=== PATIENT | female | born 1995 | race Hispanic/Latino ===

== ENCOUNTER 2019-05-03 10:01 | Emergency (ER) | payer SELFPAY ==
[2019-05-03] MEDS ORDERED: ACETAMINOPHEN 500 MG TAB ONE (12:04)
[2019-05-03 12:33] LABS: Absolute Lymphocytes (CBC) 3.3 K/uL (0.7-4.9); Basophils % 0.5 % (0-1.3); Hematocrit 35.4 % (36.0-45.0); Lymphocytes % 32.1 % (15.3-44.8); MPV 8.5 fL (7.6-11.3); RBC Red Blood Cell Count 5.34 M/uL (3.86-4.86)
[2019-05-03 12:57] LABS: Blood Morphology Comment NOTED (NOT SEEN); Platelet Estimate ADEQ; Urine White Blood Cell Casts OK
[2019-05-03 13:01] LABS: ALT/SGPT 45 U/L (12-78); AST/SGOT 30 U/L (15-37); Albumin 3.7 g/dL (3.4-5.0); Alkaline Phosphatase 76 U/L (45-117); BUN Blood Urea Nitrogen 8 mg/dL (7-18); Bicarbonate 25 mmol/L (21-32); Bilirubin Direct < 0.1 mg/dL (0-0.2); Bilirubin Total 0.3 mg/dL (0.2-1.0); Glucose Level 146 mg/dL (74-106); Lipase 103 U/L (73-393); Potassium 3.6 mmol/L (3.5-5.1); Protein, Total 8.1 g/dL (6.4-8.2); Sodium Level 140 mmol/L (136-145)
[2019-05-03 13:16] LABS: Urine Blood NEGATIVE (NEG); Urine Glucose NEGATIVE (NEG); Urine Protein NEGATIVE (NEG); Urine Specific Gravity 1.025 (1.005-1.030); Urine pH 5.5 (5.0-7.0)
[2019-05-03] MEDS ORDERED: CEFTRIAXONE/SWI 1gm 1 GM/10 ML SYR ONE (13:25)
--- NOTE | 2019-05-03 14:01 | RAD REPORT ---
EXAM DESCRIPTION: US - Pelvis Complete - 05/03/2019 1:29 pm CLINICAL HISTORY: with abdominal pain COMPARISON: None FINDINGS: There is little urine within the bladder limiting evaluation of the uterus. The uterus measures 7 x 4 x 5 centimeters. Endometrial stripe measures 11 millimeters. A gestational sac is not visualized. 2 centimeter right ovarian cyst. Right and left ovary otherwise unremarkable. Right and left adnexa unremarkable. No significant free fluid IMPRESSION: Limited evaluation of the uterus and endometrium as the bladder is not well distended. A gestational sac is not visualized within the endometrium. If the [facility]aginal [facility] would be recommended.
--- NOTE | 2019-05-03 15:01 | EDPHYS ---
Physician Documentation [facility] Name: Tracy Catherine Age: 23 yrs Sex: Female : 1995 Arrival Date: 05/03/2019 Time: 10:04 Bed 26 Private MD: ED Physician Lilliam Jurado HPI: 05/03 13:37 This 23 yrs old Female presents to ER via Ambulatory with complaints of ma2 , Abdominal Pain. 13:37 Onset: The symptoms/episode began/occurred gradually, 2 day(s) ago. Associated signs ma2 and symptoms: Pertinent positives: suprapubic abd pain, Pertinent negatives: diarrhea, fever, urinary frequency, vaginal bleeding. Severity of symptoms: At their worst the symptoms were moderate, in the emergency department the symptoms are unchanged. The patient has not experienced similar symptoms in the past. 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 - Social history:: Smoking status: Patient/guardian denies using tobacco, Patient/guardian denies using alcohol, street drugs, The patient lives with family. - Ebola Screening: : Patient denies exposure to infectious person Patient denies travel to an Ebola-affected area in the 21 days before illness onset. - Family history:: not pertinent. ROS: 13:37 Negative for injury or acute deformity, hematuria, difficulty urinating, bladder ma2 incontinence, foul smelling urine, menstrual abnormality, missed period. 13:37 Constitutional: Negative for fever, chills, and weight loss, Eyes: Negative for injury, pain, redness, and discharge. 13:37 All other systems are negative. Exam: 13:37 Constitutional: This is a well developed, well nourished patient who is awake, alert, ma2 and in no acute distress. Neck: Trachea midline, no thyromegaly or masses palpated, and no cervical lymphadenopathy. Supple, full range of motion without nuchal rigidity, or vertebral point tenderness. No Meningismus. Chest/axilla: Normal chest wall appearance and motion. Nontender with no deformity. No lesions are appreciated. Cardiovascular: Regular rate and rhythm with a normal S1 and S2. No gallops, murmurs, or rubs. Normal PMI, no JVD. No pulse deficits. Respiratory: Lungs have equal breath sounds bilaterally, clear to auscultation and percussion. No rales, rhonchi or wheezes noted. No increased work of breathing, no retractions or nasal flaring. Abdomen/GI: Soft, non-tender, with normal bowel sounds. No distension or tympany. No guarding or rebound. No evidence of tenderness throughout. Back: No spinal tenderness. No costovertebral tenderness. Full range of motion. MS/ Extremity: Pulses equal, no cyanosis. Neurovascular intact. Full, normal range of motion. Neuro: Awake and alert, GCS 15, oriented to person, place, time, and situation. Cranial nerves II-XII grossly intact. Motor strength 5/5 in all extremities. Sensory grossly intact. Cerebellar exam normal. Normal gait. Vital Signs: 10:32 BP 132 / 83; Pulse 90; Resp 15; Temp 97.5(TE); Pulse Ox 99% on R/A; Weight 38.56 kg; ss Height 5 ft. 3 in. (160.02 cm); Pain 3/10; 10:34 Weight 124.74 kg; ss 11:47 BP 122 / 85; Pulse 86; Resp 17 S; Pulse Ox 100% on R/A; ca1 12:35 BP 122 / 89; Pulse 89; Resp 17 S; Pulse Ox 99% on R/A; ca1 13:32 BP 138 / 82; Pulse 85; Resp 16 S; Pulse Ox 99% on R/A; ca1 10:34 Body Mass Index 48.71 (124.74 kg, 160.02 cm) ss MDM: 11:06 Patient medically screened. ma2 13:37 Differential diagnosis: dysmenorrhea, nonspecific abdominal pain, urinary tract ma2 infection. 14:59 Data reviewed: vital signs, nurses notes. Counseling: I had a detailed discussion with ma2 the patient and/or guardian regarding: the historical points, exam findings, and any diagnostic results supporting the discharge/admit diagnosis, the presence of at least one elevated blood pressure reading (>120/80) during this emergency department visit, the need for outpatient follow up, repeat bhcg or US . Response to treatment: the patient's symptoms have markedly improved after treatment. 05/03 11:48 Order name: Urine Dipstick--Ancillary (enter results); Complete Time: 13:20 3 05/03 11:48 Order name: Urine --Ancillary (enter results); Complete [facility]: 13:20 [facility] 05/03 11:59 Order name: Abo/rh Typing; Complete Time: 13:11 [facility] 05/03 11:59 Order name: Basic Metabolic Panel; Complete Time: 13:11 ne2 05/03 11:59 Order name: CBC with Diff; Complete Time: 13:11 [facility] 05/03 11:59 Order name: Creatinine for Radiology; Complete Time: 13:11 [facility] 05/03 11:59 Order name: Hepatic Function; Complete Time: 13:11 [facility] 05/03 11:59 Order name: Lipase; Complete Time: 13:11 [facility] 05/03 12:57 Order name: CBC Smear Scan; Complete Time: 13:11 [facility] 05/03 13:08 Order name: ABO/RH no charge; Complete Time: 13:11 [facility] 05/03 13:11 Order name: Bhcg [facility] 05/03 13:27 Order name: Pelvis Complete [facility] 05/03 11:59 Order name: IV Saline Lock; Complete Time: 12:16 ne2 05/03 11:59 Order name: Labs collected and sent; Complete Time: 12:16 ne2 05/03 11:59 Order name: NPO; Complete Time: 12:16 [facility] 05/03 11:59 Order name: Urine Dipstick-Ancillary (obtain specimen); Complete Time: 12:16 [facility] Administered Medications: 12:20 Drug: Acetaminophen 1000 mg Route: PO; ca1 13:22 Drug: Rocephin 1 grams Route: IV; Rate: calculated rate; Site: right antecubital; ca1 Disposition: 05/03/19 15:00 Discharged to Home. Impression: Cystitis, unspecified without hematuria. - Condition is Stable. - Discharge Instructions: Urinary Tract Infection, Adult, [id number]-Earf, Threatened Miscarriage, [id number]. - Prescriptions for Augmentin 875- 125 mg Oral Tablet - take 1 tablet by ORAL route every 12 hours for 10 days; 20 tablet. - Medication Reconciliation Form, Thank You Letter, Antibiotic Education, Prescription Opioid Use form. - Follow up: Private Physician; When: Tomorrow; Reason: Continuance of care. - Notes: see your issue clerk in 1-2 days for repeat blood work Bhcg and/or ultrasound.. as ectopic has not been ruled out Signatures: Dispatcher [employer] EDDC Reena Sparrow RN RN ss Lilliam Jurado MD MD ma2 Sally Diaz RN RN ca1 J Carlos Taveras RN RN tr5 Corrections: (The following items were deleted from the chart) 13:27 11:59 OB Complete+US.RAD.BRZ ordered. [facility] EDDC 15:18 15:00 05/03/2019 15:00 Discharged to Home. Impression: Cystitis, unspecified without tr5 hematuria. Condition is Stable. Discharge Instructions: Urinary Tract Infection, Adult, [id number]. Prescriptions for Augmentin 875-125 mg Oral Tablet - take 1 tablet by ORAL route every 12 hours for 10 days; 20 tablet. and Forms are Medication Reconciliation Form, Thank You Letter, Antibiotic Education, Prescription Opioid Use. Follow up: Private Physician; When: Tomorrow; Reason: Continuance of care. ma2
--- NOTE | 2019-05-03 15:01 | ER ---
Nurse's Notes [facility] Name: Tracy Catherine Age: 23 yrs Sex: Female : 1995 Arrival Date: 05/03/2019 Time: 10:04 Bed 26 Private MD: Diagnosis: Cystitis, unspecified without hematuria Presentation: 05/03 10:30 Presenting complaint: Patient states: abd soreness x 1 month. 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 + UPT 2 days ago. Pt states since she has had a miscarriage before, she wants to get checked out. Transition of care: patient was not received from another setting of care. Onset of symptoms was March 2019. Risk Assessment: Do you want to hurt yourself or someone else? Patient reports no desire to harm self or others. Initial Sepsis Screen: Does the patient meet any 2 criteria? No. Patient's initial sepsis screen is negative. Does the patient have a suspected source of infection? No. Patient's initial sepsis screen is negative. Care prior to arrival: None. 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 - Social history:: Smoking status: Patient/guardian denies using tobacco, Patient/guardian denies using alcohol, street drugs, The patient lives with family. - Ebola Screening: : Patient denies exposure to infectious person Patient denies travel to an Ebola-affected area in the 21 days before illness onset. - Family history:: not pertinent. Screenin:40 Abuse screen: Denies threats or abuse. Denies injuries from another. Nutritional ca1 screening: No deficits noted. Tuberculosis screening: No symptoms or risk factors identified. Fall Risk None identified. Assessment: 11:40 General: Appears in no apparent distress. comfortable, Behavior is calm, cooperative, ca1 appropriate for age. Pain: Complains of pain in suprapubic area Pain radiates to low back area Pain currently is 8 out of 10 on a pain scale. Quality of pain is described as crampy, Pain began 5 days ago Is intermittent. Neuro: Level of Consciousness is awake, alert, obeys commands, Oriented to person, place, time, situation, Appropriate for age. Cardiovascular: Heart tones S1 S2 present Capillary refill < 3 seconds Patient's skin is warm and dry. Respiratory: Airway is patent Respiratory effort is even, unlabored, Respiratory pattern is regular, symmetrical. GI: Abdomen is round non-distended, Bowel sounds present X 4 quads. Abd is soft X 4 quads Abdomen is tender to palpation in suprapubic area, right lower quadrant and left lower quadrant. : Reports vaginal bleeding that is spotty, since Saturday. But not today. EENT: No deficits noted. No signs and/or symptoms were reported regarding the EENT system. Derm: Skin is intact, is healthy with good turgor, Skin is pink, warm \\T\\ dry. Musculoskeletal: Circulation, motion, and sensation intact. Capillary refill < 3 seconds, Range of motion: intact in all extremities. 12:25 Reassessment: Patient appears in no apparent distress at this time. Patient and/or ca1 family updated on plan of care and expected duration. Pain level reassessed. Patient is alert, oriented x 3, equal unlabored respirations, skin warm/dry/pink. 13:34 Reassessment: Patient appears in no apparent distress at this time. Patient and/or ca1 family updated on plan of care and expected duration. Pain level reassessed. Patient is alert, oriented x 3, equal unlabored respirations, skin warm/dry/pink. Vital Signs: 10:32 BP 132 / 83; Pulse 90; Resp 15; Temp 97.5(TE); Pulse Ox 99% on R/A; Weight 38.56 kg; ss Height 5 ft. 3 in. (160.02 cm); Pain 3/10; 10:34 Weight 124.74 kg; ss 11:47 BP 122 / 85; Pulse 86; Resp 17 S; Pulse Ox 100% on R/A; ca1 12:35 BP 122 / 89; Pulse 89; Resp 17 S; Pulse Ox 99% on R/A; ca1 13:32 BP 138 / 82; Pulse 85; Resp 16 S; Pulse Ox 99% on R/A; ca1 10:34 Body Mass Index 48.71 (124.74 kg, 160.02 cm) ED Course: 10:04 Patient arrived in ED. mr 10:31 Triage completed. ss 10:32 Arm band placed on left wrist. ss 11:06 Lilliam Jurado MD is Attending Physician. ma2 11:35 Sally Diaz, RN is Primary Nurse. ca1 11:40 Patient has correct armband on for positive identification. Placed in gown. Bed in low ca1 position. Call light in reach. Side rails up X 1. Pulse ox on. NIBP on. Warm blanket given. 12:21 No provider procedures requiring assistance completed. Initial lab(s) drawn, by al, ca1 sent to lab. Inserted saline lock: 20 gauge in right antecubital area, using aseptic technique. Blood collected. 13:26 Ultrasound completed. Patient tolerated well. sg3 13:29 Pelvis Complete In Process Unspecified. EDMS 15:17 IV discontinued. tr5 Administered Medications: 12:20 Drug: Acetaminophen 1000 mg Route: PO; ca1 13:00 Follow up: Response: No adverse reaction; Pain is decreased ca1 13:22 Drug: Rocephin 1 grams Route: IV; Rate: calculated rate; Site: right antecubital; ca1 15:40 Follow up: Response: No adverse reaction; IV Status: Completed infusion ca1 Outcome: 15:00 Discharge ordered by . ma2 15:17 Discharged to home ambulatory. tr5 15:17 Condition: stable 15:17 Discharge instructions given to patient, family, Instructed on discharge instructions, follow up and referral plans. medication usage, Demonstrated understanding of instructions, follow-up care, medications, Prescriptions given X 1. 15:18 Patient left the ED. tr5 Signatures: Dispatcher [employer] EDCA Linda Dunn Shelby, RN RN Hamida Phan sg3 Lilliam Jurado MD MD ma2 Acob, Cheryl, RN RN ca1 J Carlos Taveras RN RN tr5
== END 2019-05-03 15:18 | disposition home or self-care (01) ==
LOC: ER 10:01
DX: O23.10 Infections of bladder in pregnancy, unspecified trimester (principal); O99.89 Other specified diseases and conditions complicating pregnancy, childbirth and the puerperium; R73.03 Prediabetes; Z3A.00 Weeks of gestation of pregnancy not specified
CPT/HCPCS: 36415; 76856; 80048; 80076; 81003; 81025; 83690; 85025; 86900; 86901; 96365; 96366; 99284; J0696

== ENCOUNTER 2019-08-08 22:55 | Emergency (ER) | payer OTHER, SELFPAY ==
--- OUTSIDE RECORDS SUMMARY | 2019-08-08 22:57 | XMS REPORT | Summary of Care ---
:1995 Author Organization [facility] - Health Address [address] [place] [address] Care Team Providers Name Role Phone Teri Echeverria MD Primary Care Provider Encounter Details Date Type Department Care Team Description 07/16/2019 Orders Only [facility] Doctor Unassigned, No [address] [facility] [place] [address] [address] [place] [address] Allergies No Known Allergiesdocumented as of this encounter (statuses as of 07/16/2019) Medications Medication Sig Dispensed Refills Start Date End Date Status norgestimate-ethinyl Take 1 tablet by 1 Package 0 11/15/2016 Active estradiol mouth daily. 0.18/0.215/0.25 mg-25 mcg tabletIndications: Encounter for other contraceptive management documented as of this encounter (statuses as of 07/16/2019) Active Problems Problem Noted Date Morbid obesity 11/16/2015 Well woman exam 11/16/2015 Contraceptive management 11/16/2015 Depo contraception 11/16/2015 Screen for STD (sexually transmitted disease) 11/16/2015 Dysmenorrhea 11/16/2015 documented as of this encounter (statuses as of 07/16/2019) Immunizations Name Administration Dates Next Due HPV9 11/16/2015 Tdap 06/24/2011 documented as of this encounter Social History Tobacco Use Types Packs/Day Years Used Date Never Smoker Smokeless Tobacco: Never Used Alcohol Use Drinks/Week oz/Week Comments No 0 Standard drinks or equivalent 0.0 Sex Assigned at Date Recorded Not on file Job Start Date Occupation Industry Not on file Not on file Not on file Travel History Travel Start Travel End No recent travel history available. documented as of this encounter Last Filed Vital Signs Not on filedocumented in this encounter Plan of Treatment Date Type Specialty Care Team Description 07/16/2019 Initial Obstetrics & [place], MD [place] [address] [place] [address] [phone] Visit Gynecology Teri Echeverria MD [address] [place] [address] [address] P[address] [place], [place] [id number] Health Maintenance Due Date Last Done Comments VARICELLA VACCINES (1 of 2 - 12/01/1995 2-dose childhood series) PAP SMEAR 12/01/2015 HPV VACCINES (2 - Female 3-dose 12/14/2015 11/16/2015 series) CHLAMYDIA SCREENING 11/15/2016 11/16/2015 INFLUENZA VACCINE (#1) 2019 DTaP,Tdap,and Td Vaccines (2 - Td) 06/24/2021 06/24/2011 PNEUMOCOCCAL 0-64 YEARS COMBINED Aged Out No longer eligible based on SERIES patient's age to complete this topic documented as of this encounter Procedures Procedure Name Priority Date/Time Associated Diagnosis Comments ASSIGNMENT OF BENEFITS Routine 07/16/2019 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 Medicaid HEALTH CHOICE HEALTH CHOICE nt [id number] - MANAGED MEDICAID [place], [place] [id number] [facility] xxxxxxxxx 2015-Prese [phone] Medicaid nt [id number] [place] [address] documented as of this encounter Advance Directives Name Relationship Healthcare Agent Relationship Communication Jackie Zeng Aunt Primary healthcare agent
--- OUTSIDE RECORDS SUMMARY | 2019-08-08 22:57 | XMS REPORT | Summary of Care ---
:1995 Author Organization [facility] Address [address] [place] [address] Care Team Providers Name Role Phone Teri Echeverria MD Primary Care Provider Reason for Referral (Routine) Status Reason Specialty Diagnoses / Referred By Referred To Procedures Contact Contact New Request Maternal Diagnoses High-risk , second trimester 14 weeks gestation of Teri Echeverria, Medicine Procedures CONSULT MATERNAL MEDICINE ULTRASOUND Preferred Location: Tahir MOREJON [address] [place] [address] [address] [place] [address] Reason for Visit Reason Comments CARLYN 01/12/2020 [facility] ultrasound Auth/Cert Status Reason Specialty Diagnoses / Procedures Referred By Contact Referred To Contact Phlebotomy Diagnoses High-risk , second trimester Adc Pob Lab Draw Procedures GLUCOSE, 1 HOUR Professional Office Building [address] [place] [address] , [address] [place] [address] Encounter Details Date Type Department Care Team Description 07/16/2019 Initial [facility] Paris Frias MD [address] [place] [phone] High-risk , second trimester (Primary Dx); Visit Healthcare- Teri Echeverria MD [address] [place] [address] [address] [place] [address] Morbid obesity; [place] 14 weeks gestation of [address] [place] [address], [address] [place] [phone] Allergies No Known Allergiesdocumented as of this encounter (statuses as of 07/16/2019) Medications Medication Sig Dispensed Refills Start Date End Date Status Take by 0 Active 123/iron/folic/omeg mouth. 3s (ONE-A-DAY WOMEN'S 1 ORAL) norgestimate-ethiny Take 1 1 Package 0 11/15/2016 Discontinued l estradiol tablet by 0 () 0.18/0.215/0.25 mouth daily. mg-25 mcg tabletIndications: Encounter for other contraceptive management documented as of this encounter (statuses as of 07/16/2019) Active Problems Problem Noted Date 14 weeks gestation of 07/16/2019 High-risk , second trimester 07/16/2019 Morbid obesity 11/16/2015 Estimated Date of Delivery Comments Yes 01/12/2020 Based on Patient Reported, done at help center documented as of this encounter (statuses as of 07/16/2019) Resolved Problems Problem Noted Date Resolved Date Well woman exam 11/16/2015 07/16/2019 Contraceptive management 11/16/2015 07/16/2019 Depo contraception 11/16/2015 07/16/2019 Screen for STD (sexually transmitted disease) 11/16/2015 07/16/2019 Dysmenorrhea 11/16/2015 07/16/2019 documented as of this encounter (statuses as of 07/16/2019) Immunizations Name Administration Dates Next Due HPV9 11/16/2015 Tdap 06/24/2011 documented as of this encounter Social History Tobacco Use Types Packs/Day Years Used Date Never Smoker Smokeless Tobacco: Never Used Alcohol Use Drinks/Week oz/Week Comments No 0 Standard drinks or equivalent 0.0 Estimated Date of Delivery Comments Yes 01/12/2020 Based on Patient Reported, done at help center Sex Assigned at Date Recorded Not on file Job Start Date Occupation Industry Not on file Not on file Not on file Travel History Travel Start Travel End No recent travel history available. documented as of this encounter Last Filed Vital Signs Vital Sign Reading Time Taken Comments Blood Pressure 127/89 07/16/2019 8:27 AM [employer]LE[employer] ENGINEERING PROFESSOR Pulse 81 07/16/2019 8:27 AM [employer]ROLE[employer] ENGINEERING PROFESSOR Temperature 36.7 C (98.1 F) 07/16/2019 8:27 AM [employer]LE[employer] ENGINEERING PROFESSOR Respiratory Rate 18 07/16/2019 8:27 AM [employer]LE[employer] ENGINEERING PROFESSOR Oxygen Saturation - - Inhaled Oxygen Concentration - - Weight 122 kg (269 lb) 07/16/2019 8:27 AM [employer]LE[employer] ENGINEERING PROFESSOR Height 160 cm (5' 3") 07/16/2019 8:27 AM [employer]ROLE[employer] ENGINEERING PROFESSOR Body Mass Index 47.65 07/16/2019 8:27 AM [employer] ENGINEERING PROFESSOR documented in this encounter Progress Notes Teri Echeverria MD - 07/16/2019 8:00 AM CST Chief complaint: Chief Complaint Patient presents with CARLYN 01/12/2020 [facility] ultrasound HPI Tracy Gallagher is a 23 year old female @ 14w2d by reported CARLYN of 2019 based on USG done at help center here for NOB visit. Denies vaginal bleeding or cramping. Reports a hx ofpre-diabetes. Denies hx of abnormal Pap smear. Histories OB History Para Term AB Living 1 0 0 0 0 0 SAB TAB Ectopic Multiple Live Births 0 0 0 0 # Outcome Date GA Lbr Anthony/2nd Weight Sex Delivery Anes PTL Lv 1 Current Past Medical History: Diagnosis Date Diabetes mellitus Pre Diabetes Dysmenorrhea 11/16/2015 Irregular menstrual cycle STD (sexually transmitted disease) 2013 Chlamydia Family History Problem Relation Age of Onset Breast Cancer Maternal Grandmother 42 Arthritis NoFHx Asthma NoFHx Uterine Cancer NoFHx Ovarian Cancer NoFHx Colon Cancer NoFHx defects NoFHx Cancer NoFHx Depression NoFHx Diabetes NoFHx Heart NoFHx Genetic NoFHx High cholesterol NoFHx Hypertension NoFHx Neurological NoFHx Mental retardation NoFHx Psychiatry NoFHx Other - see comments NoFHx Osteoporosis NoFHx Family Status Relation Name Status Mo Alive Fa Alive MGMo (Not Specified) NoFHx (Not Specified) History reviewed. No pertinent surgical history. Social History Socioeconomic History Marital status: Spouse name: Not on file Number of children: Not on file Years of education: Not on file Highest education level: Not on file Occupational History Comment: Unemployed Social Needs Financial resource strain: Not on file Food insecurity: Worry: Not on file Inability: Not on file Transportation needs: Medical: Not on file Non-medical: Not on file Tobacco Use Smoking status: Never Smoker Smokeless tobacco: Never Used Substance and Sexual Activity Alcohol use: No Alcohol/week: 0.0 standard drinks Drug use: No Sexual activity: Yes Partners: Male control/protection: None Lifestyle Physical activity: Days per week: Not on file Minutes per session: Not on file Stress: Not on file Relationships Social connections: Talks on phone: Not on file Gets together: Not on file Attends rastafari service: Not on file Active member of club or organization: Not on file Attends meetings of clubs or organizations: Not on file Relationship status: Not on file Intimate partner violence: Fear of current or ex partner: Not on file Emotionally abused: Not on file Physically abused: Not on file Forced sexual activity: Not on file Other Topics Concern Not on file Social History Narrative Denied domestic or physical violence within the home Cat in home ( does litter box) Social History Substance and Sexual Activity Sexual Activity Yes Partners: Male control/protection: None Genetic Screen Autism / Mental Retardation: No Zechariah Disease: No Congenital Heart Defect: No Cystic Fibrosis: No Down Syndrome: No Familial Dysautonomia: No Hemophilia or other Blood Disorders: No Jessica Chorea: No Maternal Metabolic Disorder--specify (eg. Type 1 Diabetes, PKU): No Muscular Dystrophy: No Neural Tube Defect: No Recurrent Loss or a Stillbirth: No Sickle Cell Disease or Trait: No Irwin Sachs: No Teratological Substances (specify type & strength/dose) since LMP: No Thalassemia: No Other Inherited Genetic or Chromosomal Disorder (specify): No No Significant History of Genetic Disorders: No Significant History of Genetic Disorders Labs No new labs Radiology No new radiology. Allergies Tracy has No Known Allergies. Medications Tracy has a current medication list which includes the following prescription(s ): 123/iron/folic/omeg3s. Review of Systems Constitutional: Negative for chills, fatigue and fever. HENT: Negative for congestion, rhinorrhea, sneezing and sore throat. Respiratory: Negative for cough, chest tightness, shortness of breath and wheezing. Breasts: Negative for discharge, mass, pain and unequal size. Cardiovascular: Negative for chest pain and palpitations. Gastrointestinal: Positive for anal bleeding (with constipation that has resolved since using anusoland stool softener once a week) and constipation. Negative for abdominal distention, abdominal pain,blood in stool, diarrhea, nausea and vomiting. Genitourinary: Negative for bladder incontinence, dysuria, urgency, frequency, vaginal bleeding, vaginal discharge and dyspareunia. Musculoskeletal: Negative for gait problem. Skin: Negative for rash. Neurological: Negative for syncope, light-headedness and headaches. Psychiatric/Behavioral: Negative for dysphoric mood, self-injury and suicidal ideas. Hematological: Negative for cold intolerance and heat intolerance. Does not bruise/bleed easily. Endocrine: Negative for cold intolerance and heat intolerance. BP 127/89 (BP Location: Left arm, Patient Position: Sitting) | Pulse 81 | Temp 36.7 C (98.1 F)(Oral) | Resp 18 | Ht 5' 3" (1.6 m) | Wt 269 lb (122 kg) | LMP 01/02/2019 | BMI 47.65 kg/m Pregravid BMI: 49.6 Physical Exam Vitals reviewed. Constitutional: She is oriented to person, place, and time. Her body habitus is obese. Neck: No mass. No thyromegaly palpated. Cardiovascular: Regular rate and rhythm. Pulmonary/Chest: Breath sounds clear to auscultation. Normal inspiratory effort. Abdominal: Abdomen is soft. No tenderness present. No hernia palpated or inspected. Neuro/Psychiatric: She has a normal mood and affect. She is oriented to person, place, and time. Skin: Skin normal. No rash present. Lymphadenopathy: No axillary adenopathy present. No inguinal adenopathy present. Breast: Right breast exhibits no mass, no nipple discharge and no tenderness. Left breast exhibits no mass, no nipple discharge and no tenderness. Breasts are symmetrical. External genitalia: Normal external genitalia appropriate for age. Normal hair distribution. No labial lesion. Urethral meatus: Normal urethral meatus Urethra: Normal urethra. Bladder: Normal bladder Vagina:Normal vagina. Cervix: Normal cervix. No lesion. No tenderness and no discharge present. Uterus: Unable to appreciate due to body habitus Adnexa: Unable to appreciate due to body habitus Anus/perineum: Normal perineum and normal anus. Assessment/Plan See OB Summary Return to clinic in 4 weeks. Discussed treatment options. Reviewed patient instructions and provided printed copy. Activity restrictions: As tolerated at 14w2d This visit did not involve counseling and coordination that comprised more than 50% of the visit time. Teri Echeverria MD 07/16/2019 10:35 AM documented in this encounter Plan of Treatment Date Type Specialty Care Team Description 08/13/2019 Routine Obstetrics & Sumaya Peterson, Visit Gynecology [facility] [address] [phone] Name Type Priority Associated Diagnoses Order Schedule GLUCOSE 1 HOUR POST LAB Routine High-risk , Expected: 07/16/2019, PRANDIAL second trimester Expires: 08/16/2019 Morbid obesity ADC / LCC - DRUG SCREEN LAB Routine High-risk , Ordered: 2019 TRIAGE second trimester ADC, CLC OR LCC ONLY - LAB Routine High-risk , Expected: 2019, HIV TYPE 1 AND 2 second trimester Expires: 10/15/2019 ANTIBODY SCREEN WITH P24 ADC OR SAMUEL ONLY - LAB Routine High-risk , Expected: 07/16/2019 , RPR second trimester Expires: 10/15/2019 CBC WITH DIFF LAB Routine High-risk , Expected: 07/16/2019, second trimester Expires: 10/15/2019 GC & CHLAMYDIA AMPLIFIED LAB Routine High-risk , Ordered: 2019 ASSAY second trimester HEPATITIS B SURFACE LAB Routine High-risk , Expected: 07/16/2019, ANTIGEN second trimester Expires: 10/15/2019 HCV ANTIBODY LAB Routine High-risk , Expected: 07/16/2019, second trimester Expires: 10/15/2019 WORKUP, BLOOD LAB Routine High-risk , Expected: 2019, BANK second trimester Expires: 10/15/2019 RUBELLA SCREEN IGG LAB Routine High-risk , Expected: 07/16/2019, second trimester Expires: 10/15/2019 VZV ANTIBODY SCREEN LAB Routine High-risk , Expected: 07/16/2019, second trimester Expires: 10/15/2019 URINE CULTURE LAB Routine High-risk , Expected: 07/16/2019, second trimester Expires: 08/16/2019 PAP Smear-Liquid Based LAB Routine High-risk , Expected: 2019, second trimester Expires: 07/16/2020 Health Maintenance Due Date Last Done Comments VARICELLA VACCINES ( of 2 - 12/01/1995 2-dose childhood series) [...] Procedure Name Priority Date/Time Associated Diagnosis Comments POCT URINALYSIS W/O Routine 07/16/2019 High-risk , Results for this SPECIFIC GRAVITY second trimester procedure are in the results section. documented in this encounter Results POCT URINALYSIS W/O SPECIFIC GRAVITY (07/16/2019) POCT PH U 6 5 - 8 mg/dl POCT U LEUK EST ng Negative - Negative POCT U NIT neg Negative - Negative POCT U PROT neg Negative - Negative POCT U GLU neg Negative - Negative POCT U KETONE 2+ Negative - Negative POCT U BLD neg Negative - Negative Specimen Urine - URINE, CLEAN CATCH documented in this encounter Visit Diagnoses Diagnosis High-risk , second trimester - Primary Morbid obesity 14 weeks gestation of state, incidental documented in this encounter Insurance Payer Benefit Plan / Subscriber ID Effective Phone Address Type Group [facility]xxxxxxxx 2019-Prese [address] Medicaid HEALTH CHOICE - [place] [id number] MANAGED MEDICAID [place], [place] [phone] documented as of this encounter Advance Directives Name Relationship Healthcare Agent Relationship Communication Jackie Zeng Aunt Primary healthcare agent
--- OUTSIDE RECORDS SUMMARY | 2019-08-08 22:57 | XMS REPORT | Summary of Care ---
:1995 Author Organization [facility] Address [address] [place] [address] Care Team Providers Name Role Phone Teri Echeverria MD Primary Care Provider Reason for Visit Reason Comments LAB WORK Auth/Cert Status Reason Specialty Diagnoses / Procedures Referred By Contact Referred To Contact Phlebotomy Diagnoses High-risk , second trimester Adc Pob Lab Draw Procedures GLUCOSE, 1 HOUR Professional Office Building [address] [facility] , [address] [place] [address] Encounter Details Date Type Department Care Team Description 07/16/2019 Main Line Assembler Visit [facility] Teri Echeverria MD [address] [facility] [address] [place] [address] High-risk , second trimester; Professional Office Pob, Adc Lab Main Morbid obesity Building Phlebotomy Lab Professional Office Building [address] [facility] , [address] [place] [address] Allergies No Known Allergiesdocumented as of this encounter (statuses as of 07/16/2019) Medications Medication Sig Dispensed Refills Start Date End Date Status Take by mouth. 0 Active 123/iron/folic/omeg3s (ONE-A-DAY WOMEN'S 1 ORAL) documented as of this encounter (statuses as [...] Obstetrics & Sumaya Peterson, Visit Gynecology [facility] [address] [place] [phone] Name Type Priority Associated Diagnoses Order Schedule CBC WITH DIFFERENTIAL LAB Routine High-risk , second Ordered: trimester Health Maintenance Due Date Last Done Comments [...] this topic documented as of this encounter Results Not on filedocumented in this encounter Visit Diagnoses Diagnosis High-risk , second trimester Morbid obesity documented in this encounter Insurance Payer Benefit Plan / Subscriber ID Effective Phone Address Type Group Dates [facility] [place]-Gal KEITH Medicaid HEALTH CHOICE - HEALTH CHOICE [id number] [facility] MEDICAID [place], [place] MEDICAID [phone] documented as of this encounter Advance Directives Name Relationship Healthcare Agent Relationship Communication Jackie Zeng Aunt Primary healthcare agent
--- OUTSIDE RECORDS SUMMARY | 2019-08-08 22:57 | XMS REPORT ---
:1995 [facility] Address [address] [place] [address] Dr. Hinton [address] [place] [address] Care Team Providers Name Role Phone Unavailable Unavailable Unavailable Problems This patient has no known problems. Allergies, Adverse Reactions, Alerts This patient has no known allergies or adverse reactions. Medications This patient has no known medications.
--- OUTSIDE RECORDS SUMMARY | 2019-08-08 22:58 | XMS REPORT | Summary of Care ---
:1994 Author Organization [facility] Address [address] [place] [address] Care Team Providers Name Role Phone Teri Echeverria MD Primary Care Provider Reason for Visit Reason Comments Medical Records Encounter Details Date Type Department Care Team Description 07/16/2019 Case Management [facility] Women's Sumaya Peterson, Medical Records Healthcare- [facility] [address], [address] [facility] 208 [address] [place], [place] [phone] Allergies No Known Allergiesdocumented as of [...] 01/12/2020 Based on Patient Reported, done at [facility] Sex Assigned at Date Recorded Not on file Job Start Date Occupation Industry Not on file Not on file Not on file Travel History Travel Start Travel End No recent travel history available. documented as of this encounter Last Filed Vital Signs Not on filedocumented in this encounter Progress Notes Sumaya Peterson PA-C - 07/16/2019 3:41 PM CSTMR [facility]: [facility] on 05/26/19 [place] [id number] signed by Sumaya Peterson PA-C at 2019 3:50 PM CSTdocumented in this encounter Plan of Treatment Date Type Specialty Care Team Description 08/13/2019 Routine Obstetrics & Sumaya Peterson, Visit Gynecology [facility] [address] [place] [phone] Health Maintenance Due Date Last Done Comments [...] Effective Phone Address Type Group Dates [facility] xxxxxxxxx 2019-Prese [address] Medicaid HEALTH [facility] HEALTH [facility] [id number] - MANAGED MEDICAID [place], [place] MEDICA[place] [id number] [facility] xxxxxxxxx 2015-Prese [phone] [address] Medicaid nt [id number] [place] [address] documented as of this encounter Advance Directives Name Relationship Healthcare Agent Relationship Communication Jackie Zeng Aunt Primary healthcare agent
--- OUTSIDE RECORDS SUMMARY | 2019-08-08 22:58 | XMS REPORT | Summary of Care ---
:1994 Author Organization [facility] Address [address] [place] [address] Care Team Providers Name Role Phone Teri Echeverria MD Primary Care Provider Reason for Visit Reason Comments Results calling back for results Encounter Details Date Type Department Care Team Description 07/17/2019 Telephone [facility] Women's Sumaya Peterson, Results (calling back Healthcare- [place] [facility] for results) [address], [address] [facility] 208 [address] [place], [place] [phone] Allergies No Known Allergiesdocumented as of this encounter (statuses as of 07/17/2019) Medications Medication Sig Dispensed Refills Start Date End Date Status Take by mouth. 0 Active 123/iron/folic/omeg3s (ONE-A-DAY WOMEN'S 1 ORAL) documented as of this encounter (statuses as of 07/17/2019) Active Problems Problem Noted Date 14 weeks gestation of 07/16/2019 High-risk , second trimester 07/16/2019 Morbid obesity 11/16/2015 Estimated Date of Delivery Comments Yes 01/12/2020 Based on Patient Reported, done at help center documented as of this encounter (statuses as of 07/17/2019) Resolved Problems Problem Noted Date Resolved Date Well woman exam 11/16/2015 07/16/2019 Contraceptive management 11/16/2015 07/16/2019 Depo contraception 11/16/2015 07/16/2019 Screen for STD (sexually transmitted disease) 11/16/2015 07/16/2019 Dysmenorrhea 11/16/2015 07/16/2019 documented as of this encounter (statuses as of 07/17/2019) Immunizations Name Administration Dates Next Due HPV9 [...] Obstetrics & Sumaya Peterson, Visit Gynecology [facility] [address] [place] [phone] Health Maintenance Due Date Last Done [...] Effective Phone Address Type Group Dates [facility] xxxxxxxxx 2019-Prese [address] Medicaid HEALTH CHOICE HEALTH CHOICE nt [id number] - MANAGED MEDICAID [place], [place] MEDICAID [id number] [facility] xxxxxxxxx 2015-Prese [phone] [address] Medicaid nt [id number] [place] [address] documented as of this encounter Advance Directives Name Relationship Healthcare Agent Relationship Communication Jackie Zeng Aunt Primary healthcare agent [phone] ([place])
--- OUTSIDE RECORDS SUMMARY | 2019-08-08 22:58 | XMS REPORT | Summary of Care ---
:1994 Author Organization [facility] Address [address] [place] [address] Care Team Providers Name Role Phone Teri Echeverria MD Primary Care Provider Reason for Visit Reason Comments TEST RESULTS [facility] low risk / female Encounter Details Date Type Department Care Team Description 07/27/2019 Telephone [facility] Women's Sumaya Peterson, TEST RESULTS ( [facility] PA-C low risk / female) [address], [address] [facility] 208 [address] [place], [place] [phone] Allergies No Known Allergiesdocumented as of this encounter (statuses as of 07/28/2019) Medications Medication Sig Dispensed Refills Start Date End Date Status Take by mouth. 0 Active 123/iron/folic/omeg3s (ONE-A-DAY WOMEN'S 1 ORAL) documented as of this encounter (statuses as of 07/28/2019) Active Problems Problem Noted Date 14 weeks gestation of 07/16/2019 High-risk , second trimester 07/16/2019 Morbid obesity 11/16/2015 Estimated Date of Delivery Comments Yes 01/12/2020 Based on Patient Reported, done at help center documented as of this encounter (statuses as of 07/28/2019) Resolved Problems Problem Noted Date Resolved Date Well woman exam 11/16/2015 07/16/2019 Contraceptive management 11/16/2015 07/16/2019 Depo contraception 11/16/2015 07/16/2019 Screen for STD (sexually transmitted disease) 11/16/2015 07/16/2019 Dysmenorrhea 11/16/2015 07/16/2019 documented as of this encounter (statuses as of 07/28/2019) Immunizations Name Administration Dates Next Due HPV9 [...] Type Specialty Care Team Description 08/13/2019 Routine Visit Obstetrics & Sumaya Peterson, Gynecology [facility] [address] [place] [phone] 08/21/2019 Buckle And Button Maker Visit Obstetrics & Ultrasound, [facility] Gynecology Health Maintenance Due Date Last Done Comments VARICELLA VACCINES (1 of 2 - 12/01/1995 2-dose childhood series) HPV VACCINES (2 - Female 12/14/2015 11/16/2015 3-dose series) INFLUENZA VACCINE (#1) 2019 CHLAMYDIA SCREENING 07/16/2020 07/16/2019, 11/16/2015 DTaP,Tdap,and Td Vaccines (2 06/24/2021 06/24/2011 - Td) PAP SMEAR 07/16/2022 07/16/2019 PNEUMOCOCCAL 0-64 YEARS Aged Out No longer eligible based COMBINED SERIES on patient's age to complete this topic documented as of this encounter Results Not on filedocumented in this encounter Insurance Payer Benefit Plan / Subscriber ID Effective Phone Address Type Group Dates [facility] [place] 2019-Prese [address] Medicaid HEALTH [employer] HEALTH CHOICE nt [id number] - MANAGED MEDICAID [place], [place]ICA[place] [id number] [facility] xxxxxxxxx 2015-Prese [phone] [address] Medicaid nt [id number] [place] [address] documented as of this encounter Advance Directives Name Relationship Healthcare Agent Relationship Communication Jackie Zeng Aunt Primary healthcare agent
--- OUTSIDE RECORDS SUMMARY | 2019-08-08 22:58 | XMS REPORT | Summary of Care ---
:1995 Author Organization [facility] Address [address] [place] [id number] Care Team Providers Name Role Phone Teri Echeverria MD Primary Care Provider Reason for Visit Reason Comments Abnormal Lab Encounter Details Date Type Department Care Team Description 07/16/2019 Case Management [facility] Women's Sumaya Peterson PA-C Abnormal Lab [facility] [place] [address] [facility] 146 [facility], [facility] [address] [place] [id number] [phone] Allergies No Known Allergiesdocumented as of this [...] Obstetrics & Sumaya Peterson, Visit Gynecology [facility] [address] [place] [phone] Name Type Priority Associated Diagnoses Order Schedule 3 HR GLUCOSE TOLERANCE LAB Routine Abnormal maternal glucose Expected: , PANEL tolerance, antepartum Expires: 07/16/2020 Health Maintenance Due Date Last [...] filedocumented in this encounter Visit Diagnoses Diagnosis Abnormal maternal glucose tolerance, antepartum - Primary documented in this encounter Insurance Payer Benefit Plan / Subscriber ID Effective Phone Address Type Group Dates [facility] xxxxxxxxx 2019-Prese [address] Medicaid HEALTH CHOICE HEALTH CHOICE [id number] - MANAGED MEDICAID [place], [place]ICA[place] [id number] [facility] xxxxxxxxx 2015-Prese [phone] [address] Medicaid nt [id number] [place] [address] documented as of this encounter Advance Directives Name Relationship Healthcare Agent Relationship Communication Jackie Zeng Aunt Primary healthcare agent
--- OUTSIDE RECORDS SUMMARY | 2019-08-08 22:58 | XMS REPORT | Summary of Care ---
:1995 Author Organization [facility] Address [address] [place] [id number] Care Team Providers Name Role Phone Teri Echeverria MD Primary Care Provider Reason for Visit Reason Comments LAB WORK Auth/Cert Status Reason Specialty Diagnoses / Procedures Referred By Contact Referred To Contact Phlebotomy Diagnoses High-risk , second trimester Adc Pob Lab Draw Procedures GLUCOSE, 1 HOUR Professional Office Building 146 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 second trimester Morbid obesity ADC OR SAMUEL ONLY - LAB Routine High-risk , 07/16/2019 11:24 AM FURNACE REPAIR MECHANIC RPR second trimester HEPATITIS B SURFACE LAB Routine High-risk , 07/16/2019 11:24 AM FURNACE REPAIR MECHANIC ANTIGEN second trimester HCV ANTIBODY LAB Routine High-risk , 07/16/2019 11:24 AM FURNACE REPAIR MECHANIC second trimester RUBELLA SCREEN IGG LAB Routine High-risk , 07/16/2019 11:24 AM FURNACE REPAIR MECHANIC second trimester VZV ANTIBODY SCREEN LAB Routine High-risk , 07/16/2019 11:24 AM 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 second trimester URINE CULTURE LAB Routine High-risk , 07/16/2019 11:23 AM FURNACE REPAIR MECHANIC second trimester HIV 1/2 AG-AB WITH LAB Routine High-risk , 07/16/2019 11:24 AM 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 documented in this encounter Results CBC WITH DIFFERENTIAL (07/16/2019 11:24 AM FURNACE REPAIR MECHANIC) WBC 11.98 (H) 4.30 - 11.10 [facility] 10*3/L [facility] RBC 4.94 3.93 - 5.25 [facility] 10*6/L [facility] HGB 11.5 (L) 11.6 - 15.0 [facility] g/dL [facility] HCT 34.9 (L) 35.7 - 45.2 % [facility] MCV 70.6 (L) 80.6 - 95.5 fL [facility] MCH 23.3 (L) 25.9 - 32.8 pg [facility] MCHC 33.0 31.6 - 35.1 [facility] g/dL [facility] RDW-SD 43.3 39.0 - 49.9 fL [facility] RDW-CV 17.4 (H) 12.0 - 15.5 % [facility] PLT 327 166 - 358 [facility] 10*3/L [facility] MPV 10.0 9.5 - 12.9 fL [facility] NRBC/100 WBC 0.0 0.0 - 10.0 /100 [facility] WBCs [facility] NRBC x10^3 <0.01 10*3/L [facility] GRAN MAT (NEUT) % 67.2 % [facility] IMM GRAN % 0.30 % [facility] LYMPH % 27.7 % [facility] MONO % 3.8 % [facility] EOS % 0.7 % [facility] BASO % 0.3 % [facility] GRAN MAT x10^3(ANC) 8.06 (H) 1.88 - 7.09 [facility] 10*3/uL [facility] IMM GRAN x10^3 0.03 0.00 - 0.06 [facility] 10*3/uL [facility] LYMPH x10^3 3.32 (H) 1.32 - 3.29 [facility] 10*3/uL [facility] MONO x10^3 0.46 0.33 - 0.92 [facility] 10*3/uL [facility] EOS x10^3 0.08 0.03 - 0.39 [facility] 10*3/uL [facility] BASO x10^3 0.03 0.01 - 0.07 [facility] 10*3/uL [facility] Specimen Blood Performing Organization Address City/State/Zipcode Phone Number [facility] CLIA: [id number], [address] [place] [address] documented in this encounter Visit Diagnoses Diagnosis High-risk , second trimester Morbid obesity documented in this encounter Insurance Payer Benefit Plan / Subscriber ID Effective Phone Address Type Group Dates [employer] xxxxxxxxx 2019-Gal KEITH Medicaid HEALTH CHOICE - HEALTH [employer] [id number] MANAGED MEDICAID [place], [place] MEDICAID [id number] documented as of this encounter Advance Directives Name Relationship Healthcare Agent Relationship Communication Jackie Zeng Aunt Primary healthcare agent
[2019-08-09 01:11] LABS: Urine Blood NEGATIVE (NEG); Urine Glucose NEGATIVE (NEG); Urine Protein TRACE (NEG); Urine Specific Gravity >1.030 (1.005-1.030); Urine pH 5.5 (5.0-7.0)
[2019-08-09] MEDS ORDERED: NA CHLORIDE 0.9% 1,000 ML ONE ×2 (01:30→02:51)
[2019-08-09 01:50] LABS: Basophils % 0.4 % (0-1.3); Hematocrit 35.7 % (36.0-45.0); Lymphocytes % 9.7 % (15.3-44.8); MPV 8.7 fL (7.6-11.3); RBC Red Blood Cell Count 5.04 M/uL (3.86-4.86)
[2019-08-09 02:01] LABS: BUN Blood Urea Nitrogen 5 mg/dL (7-18); Bicarbonate 21 mmol/L (21-32); Glucose Level 96 mg/dL (74-106); Potassium 3.4 mmol/L (3.5-5.1); Sodium Level 136 mmol/L (136-145)
[2019-08-09 02:32] LABS: Blood Morphology Comment NOT SEEN (NOT SEEN); Platelet Estimate ADEQ
[2019-08-09] MEDS ORDERED: ENOXAPARIN 100 MG/ML SYR SQ ONE (04:00)
[2019-08-09] MEDS ORDERED: ENOXAPARIN 30 MG/0.3 ML SQ ONE (04:00)
[2019-08-09] MEDS ORDERED: ACETAMINOPHEN 325 MG TABLET ONE (04:13)
--- NOTE | 2019-08-09 04:47 | EDPHYS ---
Physician Documentation [facility] Name: Tracy Catherine Age: 23 yrs Sex: Female : 1995 Arrival Date: 08/08/2019 Time: 23:00 Bed 25 Private MD: ED Physician Kenton Ferraro HPI: 08/09 01:16 This 23 yrs old Female presents to ER via Ambulatory with complaints of Fever, kdr Diarrhea, Vomiting, Weakness, 17 WKS PREG. 01:16 The patient reports fever, not measured (subjective). Onset: The symptoms/episode kdr began/occurred today. Modifying factors: there are no obvious modifying factors. 01:18 Severity of symptoms: At their worst the symptoms were mild in the emergency department kdr the symptoms have improved mildly. The patient has not experienced similar symptoms in the past. The patient had routine follow-up for her . 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 - Coronavirus screen:: The patient has NOT traveled to [place] in the past 14 days. Proceed with normal triage process as indicated. - Social history:: Smoking status: Patient denies any tobacco usage or history of. - Ebola Screening: : No symptoms or risks identified at this time. ROS: 01:18 Constitutional: Negative for weight loss - she has had subjective fever and chills kdr Eyes: Negative for injury, pain, redness, and discharge, ENT: Negative for injury, pain, and discharge, Neck: Negative for injury, pain, and swelling, Cardiovascular: Negative for chest pain, palpitations, and edema, Respiratory: Negative for shortness of breath, cough, wheezing, and pleuritic chest pain, Back: Negative for injury and pain, : Negative for injury, bleeding, discharge, and swelling, MS/Extremity: Negative for injury and deformity, Skin: Negative for injury, rash, and discoloration, Neuro: Negative for headache, weakness, numbness, tingling, and seizure activity. Psych: Negative for depression, anxiety, suicide ideation, homicidal ideation, and hallucinations, Allergy/Immunology: Negative for hives, rash, and allergies, Endocrine: Negative for neck swelling, polydipsia, polyuria, polyphagia, and marked weight changes, Hematologic/Lymphatic: Negative for swollen nodes, abnormal bleeding, and unusual bruising. 01:18 Abdomen/GI: Positive for nausea, diarrhea. 01:18 Neuro: Positive for weakness. Exam: 01:18 Constitutional: This is a well developed, well nourished patient who is awake, alert, kdr and in no acute distress. Head/Face: Normocephalic, atraumatic. Eyes: Pupils equal round and reactive to light, extra-ocular motions intact. Lids and lashes normal. Conjunctiva and sclera are non-icteric and not injected. Cornea within normal limits. Periorbital areas with no swelling, redness, or edema. Neck: Trachea midline, no thyromegaly or masses palpated, and no cervical lymphadenopathy. Supple, full range of motion without nuchal rigidity, or vertebral point tenderness. No Meningismus. Chest/axilla: Normal chest wall appearance and motion. Nontender with no deformity. No lesions are appreciated. Cardiovascular: Regular rate and rhythm with a normal S1 and S2. No gallops, murmurs, or rubs. Normal PMI, no JVD. No pulse deficits. Respiratory: Lungs have equal breath sounds bilaterally, clear to auscultation and percussion. No rales, rhonchi or wheezes noted. No increased work of breathing, no retractions or nasal flaring. Back: No spinal tenderness. No costovertebral tenderness. Full range of motion. Skin: Warm, dry with normal turgor. Normal color with no rashes, no lesions, and no evidence of cellulitis. MS/ Extremity: Pulses equal, no cyanosis. Neurovascular intact. Full, normal range of motion. Neuro: Awake and alert, GCS 15, oriented to person, place, time, and situation. Cranial nerves II-XII grossly intact. Motor strength 5/5 in all extremities. Sensory grossly intact. Cerebellar exam normal. Normal gait. Psych: Awake, alert, with orientation to person, place and time. Behavior, mood, and affect are within normal limits. 01:18 Abdomen/GI: Inspection: abdomen appears normal, obese Bowel sounds: active, diminished, in all quadrants, Palpation: soft, mild abdominal tenderness, in the epigastric area, right upper quadrant and left upper quadrant. Vital Signs: 08/08 23:59 BP 114 / 75 RA Supine (auto/lg); Pulse 128 MON; Resp 20 S; Temp 99.1(O); Pulse Ox 99% ds4 on R/A; Pain 08/31; 08/09 00:32 Weight 120.2 kg; Height 5 ft. 3 in. (160.02 cm); ls4 00:58 BP 116 / 72 RA Supine (man/lg); Pulse 122; Resp 16; Temp 100.2(O); Pulse Ox 99% on R/A; ls4 Pain 4; 02:10 BP 98 / 71; Pulse 119; Resp 26 S; Temp 98.; Pulse Ox 99% on R/A; bb 02:35 BP 93 / 51 Supine; Pulse 114; Resp 26 S; Pulse Ox 99% on R/A; bb 02:38 BP 92 / 62 Sitting; Pulse 122; Resp 26 S; Pulse Ox 100% on R/A; bb 02:39 BP 96 / 56 Standing; Pulse 136; Resp 26 S; Pulse Ox 100% ; bb 04:10 BP 110 / 88 (man/); Pulse 124; Resp 28 S; Temp 101.3(O); Pulse Ox 100% on R/A; bb 05:03 Pulse 123; Resp 26 S; Temp 98.8(O); Pulse Ox 99% on R/A; bb 05:42 BP 116 / 74; Pulse 119; Resp 26 S; Temp 98.7(O); Pulse Ox 98% on R/A; bb 00:32 Body Mass Index 46.94 (120.20 kg, 160.02 cm) ls4 08/08 23:59 Pain referred to on vital signs is lower abdominal pain. ds4 MDM: 08/09 01:18 Data reviewed: vital signs, nurses notes, lab test result(s). Counseling: I had a kdr detailed discussion with the patient and/or guardian regarding: the historical points, exam findings, and any diagnostic results supporting the discharge/admit diagnosis, lab results, the need for outpatient follow up. 03:54 ED course: Since the DD is greater that 1,500 will give Lovenox and consider CT. ED kdr course: adjusted DD should be less that 1,300 ([email or web address] reference values). 04:46 Patient medically screened. kdr 08/08 23:36 Order name: Flu kdr 08/08 23:36 Order name: Strep kdr 08/09 00:26 Order name: Urine Dipstick--Ancillary (enter results) cm6 08/09 00:59 Order name: Influenza Screen (A ; Complete Time: 01:01 EDMS 08/09 01:00 Order name: Group A Streptococcus Rapid Sc; Complete Time: 01:39 EDMS 08/09 01:01 Order name: CBC with Diff kdr 08/09 01:01 Order name: Chem 7 kdr 08/09 01:11 Order name: Urine Dipstick-Ancillary; Complete Time: 01:39 EDMS 08/09 02:02 Order name: Basic Metabolic Panel; Complete Time: 02:18 EDMS 08/09 02:05 Order name: CBC with Automated Diff; Complete Time: 02:47 EDMS 08/09 02:33 Order name: Manual Differential; Complete Time: 02:47 EDMS 08/09 02:50 Order name: DD kdr 08/09 03:39 Order name: D-Dimer; Complete Time: 03:43 EDMS 08/09 04:08 Order name: CXR XRAY kdr 08/08 23:36 Order name: Urine Dipstick-Ancillary (obtain specimen); Complete Time: 00:22 kdr 08/08 23:37 Order name: VS; Complete Time: 00:02 kdr Administered Medications: 01:11 Drug: NS 0.9% 1000 ml Route: IV; Rate: 1 bolus; Site: right antecubital; ls4 02:27 Follow up: IV Status: Completed infusion; IV Intake: 1000ml bb 02:57 Drug: NS 0.9% 1000 ml Route: IV; Rate: 1 bolus; Site: right antecubital; bb 05:44 Follow up: IV Status: Completed infusion; IV Intake: 900ml bb 04:07 Drug: Lovenox 1 mg/kg Route: Sub-Q; Site: abdomen; bb 05:44 Follow up: Response: No adverse reaction bb 04:24 Drug: Tylenol 1000 mg Route: PO; bb 05:10 Follow up: Response: Temperature is decreased bb Disposition: 08/09/19 04:46 Transfer ordered to [facility]. Diagnosis is Pulmonary embolism. - Reason for transfer: Higher level of care. - Accepting physician is Emiliano. - Condition is Fair. - Problem is new. - Symptoms are unchanged. Signatures: Dispatcher [employer] EDKenton Hinds MD MD kdr Iesha Shepard, RN RN bb Monique Yeh RN RN ls4 Corrections: (The following items were deleted from the chart) 05:43 04:46 08/09/2019 04:46 Transfer ordered to [facility]. Diagnosis is Pulmonary bb embolism. Reason for transfer: Higher level of care. Accepting physician is Emiliano. Condition is Fair. Problem is new. Symptoms are unchanged. kdr
--- NOTE | 2019-08-09 04:47 | ER ---
Nurse's Notes [facility] Name: Tracy Catherine Age: 23 yrs Sex: Female : 1995 Arrival Date: 08/08/2019 Time: 23:00 Bed 25 Private MD: Diagnosis: Pulmonary embolism Presentation: 08/08 23:02 Presenting complaint: Patient states: VOMITING DIARRHEA WEAKNESS FOR ONE DAY. ls4 Transition of care: patient was not received from another setting of care. 23:02 Method Of Arrival: Ambulatory ls4 23:02 Onset of symptoms was August 08, 2019 at 12:00. Risk Assessment: Do you want to hurt ls4 yourself or someone else? Patient reports no desire to harm self or others. Initial Sepsis Screen: Does the patient meet any 2 criteria? No. Patient's initial sepsis screen is negative. Does the patient have a suspected source of infection? No. Patient's initial sepsis screen is negative. Care prior to arrival: None. 23:02 Acuity: LATANYA 3 hb Triage Assessment: 08/09 00:28 General: Appears in no apparent distress. Behavior is calm, cooperative. Pain: ls4 Complains of pain in GENERALIZED Pain currently is 4 out of 10 on a pain scale. Quality of pain is described as aching. EENT: No deficits noted. Neuro: No deficits noted. Cardiovascular: Denies chest pain, diaphoresis, fatigue, lightheadedness, palpitations, shortness of breath, syncope. Respiratory: No deficits noted. GI: Abdomen is non-distended, obese, Bowel sounds present X 4 quads. Abd is soft Abdomen is tender to palpation in right upper quadrant, left upper quadrant and left lower quadrant Reports nausea, vomiting, since yesterday. : No deficits noted. Derm: No deficits noted. Musculoskeletal: No deficits noted. FREELANCE TRANSLATOR: 00:32 Verified ls4 Historical: - Allergies: 00:28 No Known Allergies; ls4 - Home Meds: 00:28 Vitamin Oral tab [Active]; ls4 - PMHx: 00:28 PRE DIABETIC; ls4 - PSHx: 00:28 None; ls4 - Immunization history:: Adult Immunizations up to date. - Coronavirus screen:: The patient has NOT traveled to [place] in the past 14 days. Proceed with normal triage process as indicated. - Social history:: Smoking status: Patient denies any tobacco usage or history of. - Ebola Screening: : No symptoms or risks identified at this time. Screenin:31 Abuse screen: Denies threats or abuse. Denies injuries from another. Nutritional ls4 screening: No deficits noted. Tuberculosis screening: No symptoms or risk factors identified. Fall Risk None identified. Assessment: 08/08 23:02 General: see triage assessment . ls4 08/09 00:10 Reassessment: No changes from previously documented assessment. Patient and/or family ls4 updated on plan of care and expected duration. Pain level reassessed. Patient is alert, oriented x 3, equal unlabored respirations, skin warm/dry/pink. 01:37 Reassessment: No changes from previously documented assessment. Patient and/or family ls4 updated on plan of care and expected duration. Pain level reassessed. Patient is alert, oriented x 3, equal unlabored respirations, skin warm/dry/pink. 02:08 Reassessment: Patient is alert, oriented x 3, equal unlabored respirations, skin bb warm/dry/pink. pt resting quietly, IV site intact, patent with fluids infusing, awaiting diagnostic results, family at bedside. 02:43 Reassessment: Patient is alert, oriented x 3, equal unlabored respirations, skin bb warm/dry/pink. orthostatics performed, pt tolerated well, pt ambulated with steady gait to the bathroom, family at bedside. 03:45 Reassessment: pt is A\T\O x 4, resp tachypneic, altaf breath sounds clear to auscultation, bb pt is resting quietly, IV site intact, patent with fluids infusing, Dr Ferraro at bedside for discussion of findings and recommendations pt to be transferred to [facility] for higher level of care pt verbalized understanding of and agrees to plan of care. Transfer initiated. Pt instructed on need for strict bedrest. 04:44 Reassessment: report called to Yajaira Carrera RN at [facility]. arti 05:41 Reassessment: [facility] at bedside for transfer of pt to [facility], pt is A\T\O x 4, bb resp tachypneic, IV site intact, no erythema or edema noted, spouse at bedside. Vital Signs: 08/08 23:59 BP 114 / 75 RA Supine (auto/lg); Pulse 128 MON; Resp 20 S; Temp 99.1(O); Pulse Ox 99% ds4 on R/A; Pain 08/31; 08/09 00:32 Weight 120.2 kg; Height 5 ft. 3 in. (160.02 cm); ls4 00:58 BP 116 / 72 RA Supine (man/lg); Pulse 122; Resp 16; Temp 100.2(O); Pulse Ox 99% on R/A; ls4 Pain 10/01; 02:10 BP 98 / 71; Pulse 119; Resp 26 S; Temp 98.; Pulse Ox 99% on R/A; bb 02:35 BP 93 / 51 Supine; Pulse 114; Resp 26 S; Pulse Ox 99% on R/A; bb 02:38 BP 92 / 62 Sitting; Pulse 122; Resp 26 S; Pulse Ox 100% on R/A; bb 02:39 BP 96 / 56 Standing; Pulse 136; Resp 26 S; Pulse Ox 100% ; bb 04:10 BP 110 / 88 (man/); Pulse 124; Resp 28 S; Temp 101.3(O); Pulse Ox 100% on R/A; bb 05:03 Pulse 123; Resp 26 S; Temp 98.8(O); Pulse Ox 99% on R/A; bb 05:42 BP 116 / 74; Pulse 119; Resp 26 S; Temp 98.7(O); Pulse Ox 98% on R/A; bb 00:32 Body Mass Index 46.94 (120.20 kg, 160.02 cm) ls4 08/08 23:59 Pain referred to on vital signs is lower abdominal pain. ds4 ED Course: 23:00 Patient arrived in ED. es 23:02 Arm band placed on. ls4 23:10 Kenton Ferraro MD is Attending Physician. kdr 23:13 Monique Yeh, ZAK is Primary Nurse. ls4 23:48 Strep Sent. ds4 23:48 Flu Sent. ds4 08/09 00:25 Triage completed. ls4 00:31 No provider procedures requiring assistance completed. ls4 00:31 Patient has correct armband on for positive identification. Bed in low position. Call ls4 light in reach. Side rails up X2. Pulse ox on. NIBP on. Verbal reassurance given. 01:11 Initial lab(s) drawn, by me, sent to lab. Urine collected: clean catch specimen, debi ls4 colored. 01:39 Chem 7 Sent. ls4 01:39 CBC with Diff Sent. ls4 01:40 Inserted saline lock: 20 gauge in right antecubital area, using aseptic technique. ls4 Blood collected. 02:57 Initial lab(s) drawn, by me, sent to lab. bb 04:30 Patient transferred, IV remains in place. bb 04:57 Assisted with bedpan. bb Administered Medications: 01:11 Drug: NS 0.9% 1000 ml Route: IV; Rate: 1 bolus; Site: right antecubital; ls4 02:27 Follow up: IV Status: Completed infusion; IV Intake: 1000ml bb 02:57 Drug: NS 0.9% 1000 ml Route: IV; Rate: 1 bolus; Site: right antecubital; bb 05:44 Follow up: IV Status: Completed infusion; IV Intake: 900ml bb 04:07 Drug: Lovenox 1 mg/kg Route: Sub-Q; Site: abdomen; bb 05:44 Follow up: Response: No adverse reaction bb 04:24 Drug: Tylenol 1000 mg Route: PO; bb 05:10 Follow up: Response: Temperature is decreased bb Intake: 02:27 IV: 1000ml; Total: 1000ml. bb 05:44 IV: 900ml; Total: 1900ml. bb Outcome: 04:30 Instructed on the need for transfer. bb 04:46 ER care complete, transfer ordered by . kdr 05:43 Transferred by ground EMS to [facility], Transfer form bb completed. X-rays sent w/ patient. 05:43 Condition: stable 05:43 Patient left the ED. bb Signatures: Kenton Ferraro MD MD kdr Salyer, Edna es Ballard, Brenda RN RN bb Mayito Mcbride ds4 Tracie Edge RN RN Monique Sánchez RN RN ls4 Corrections: (The following items were deleted from the chart) 01:20 02/15 23:02 Acuity: LATANYA 4 ls4 08/09 01:37 00:28 GI: Abdomen is non-distended, obese, Bowel sounds present X 4 quads. Abd is soft ls4 and non tender X 4 quads. Reports nausea, vomiting, since yesterday ls4 01:41 00:31 Patient did not have IV access during this emergency room visit. ls4 ls4 04:27 02:10 BP 98 / 71; Pulse 119bpm; Resp 16bpm; Spontaneous; Pulse Ox 99% RA; Temp 98.F; bb bb 04:27 02:35 BP 93 / 51 Supine; Pulse 114bpm; Resp 16bpm; Spontaneous; Pulse Ox 99% RA; bb bb 04: 02:38 BP 92 / 62 Sitting; Pulse 122bpm; Resp 16bpm; Spontaneous; Pulse Ox 100% RA; bb bb 04: 02:39 BP 96 / 56 Standing; Pulse 136bpm; Resp 16bpm; Spontaneous; Pulse Ox 100%; bb bb 04:57 03:45 Reassessment: pt is A\T\O x 4, resp tachypneic, altaf breath sounds clear to bb auscultation, pt is resting quietly, IV site intact, patent with fluids infusing, Dr Ferraro at bedside for discussion of findings and recommendations pt to be transferred to [facility] for higher level of care pt verbalized understanding of and agrees to plan of care. Transfer initiated. bb
[2019-08-09 06:17] VITALS: BP 116/74; TEMP 98.7; O2SAT 98
--- NOTE | 2019-08-09 09:01 | RAD REPORT ---
EXAM DESCRIPTION: RAD - Chest Single View - 08/09/2019 4:34 am CLINICAL HISTORY: SOB, fever COMPARISON: No comparisons TECHNIQUE: AP portable chest image was obtained 08/09/2019 4:34 am . FINDINGS: Lungs are underinflated but otherwise clear. Vasculature and lung markings are not outside of normal range for shallow inspiration portable imaging. Heart and vasculature are normal. No measu rable pleural effusion and no pneumothorax. No acute bony abnormality seen. No acute aortic findings suspected. IMPRESSION: No acute cardiopulmonary process.
== END 2019-08-09 05:43 | disposition short-term general hospital (02) ==
LOC: ER 22:55
DX: O88.212 Thromboembolism in pregnancy, second trimester (principal); Z3A.17 17 weeks gestation of pregnancy
CPT/HCPCS: 96361; 87070; 85025; 80048; 36415; 85379; 87081; 81003; 87804 ×2; 71045; 96360; 96372; 99285; J1650 ×2; J7030 ×2